=== PATIENT | male | born 1960 | race Caucasian/White ===

== ENCOUNTER 2018-11-26 00:19 | Emergency (ER) | payer BC ==
--- NOTE | 2018-11-26 00:42 | ED ---
Syncope/Near Syncope - HPI Summary HPI Summary: 58 yo male [place] [facility] [facility] [place] s/p dizziness. Pt tells me that he was out drinking with old college friends starting at around 1700 this evening. He was at a local bar with his friends and around 2330 he stood up from the table and felt dizzy at which point he fell to the floor. Friends around him said he was "out" for about a minute. He came to and says that he felt ok, but was still dizzy. Currently he admits that he drank around 12-13 beers between 1700 and 2330. No drug use. He still has some dizziness, but denies SOB, chest pain, abdominal pain, n/v/d, dysuria. He denies PMHx and takes no medications. - History Of Current Complaint Chief Complaint: EDSyncope Time Seen by Provider: 11/26/18 00:42 Hx Obtained From: Patient Onset/Duration: Sudden Onset - Allergies/Home Medications Allergies/Adverse Reactions: Allergies Allergy/AdvReac Type Severity Reaction Status Date / Time No Known Allergies Allergy Verified 11/26/18 00:20 Home Medications: Home Medications NK [No Home Medications Reported] 11/26/18 [History Confirmed 11/26/18] PMH/Surg Hx/FS Hx/Imm Hx Endocrine/Hematology History: Denies: Hx Diabetes Cardiovascular History: Denies: Hx Atrial Fibrillation, Hx Congestive Heart Failure, Hx Hypotension, Hx Hypertension Respiratory History: Denies: Hx Asthma, Hx Chronic Obstructive Pulmonary Disease (COPD) GI History: Denies: Hx Gastroesophageal Reflux Disease Neurological History: Denies: Hx CVA, Hx Headaches, Hx Migraine, Hx Transient Ischemic Attacks (TIA ) Psychiatric History: Denies: Hx Anxiety, Hx Depression - Surgical History Surgical History: None - Immunization History Immunizations Up to Date: Yes Infectious Disease History: No Infectious Disease History: Denies: Traveled Outside the [place] in Last 30 Days - Family History Known Family History: Positive: Non-Contributory - Social History Occupation: Employed Full-time Lives: With Family Alcohol Use: Weekly Substance Use Type: Reports: None Smoking Status (MU): Former Smoker Review of Systems Constitutional: Negative Cardiovascular: Negative Respiratory: Negative Gastrointestinal: Negative Genitourinary: Negative Musculoskeletal: Negative Skin: Negative Positive: Syncope Psychological: Normal All Other Systems Reviewed And Are Negative: Yes Physical Exam - Summary Physical Exam Summary: GENERAL: NAD. WDWN. No pain distress. SKIN: No rashes, sores, or open wounds. HEENT: Head: AT/NC Eyes: PERRLA. EOM intact. Conjunctiva clear without inflammation or discharge. Ears: Hearing grossly normal. TMs intact, no bulging, erythema, or edema. Nose: Nasal mucosa pink and moist. NTTP maxillary and frontal sinus. Throat: Posterior oropharynx without exudates, erythema, or tonsillar enlargement. Uvula midline. NECK: Supple. Nontender. No lymphadenopathy. CHEST: CTAB. No r/r/w. No accessory muscle use. Breathing comfortably and in no distress. CV: RRR. Without m/r/g. Pulses intact. Brisk cap refill. ABDOMEN: Soft. NTTP. No distention or guarding. No CVA tenderness. Bowel sounds present MSK: FROM and 5/5 strength throughout. No edema. NEURO: Alert. 3 word recall, remote, recent memory, ability to follow 2-step directions, and attention intact. CN: II: Peripheral alcaraz intact. Vision normal. III, IV, : EOMI. No nystagmus. PERRLA. V: Sensations intact and symmetric. Opens mouth and clenches teeth. VII: No facial asymmetry. Forehead wrinkles. Grins, shuts eyes, frowns, puffs cheeks. VIII: Hearing intact to finger rub. IX, X: Swallows and coughs. Uvula midline. XI: Shrugs shoulders. Turns head against resistance. XII: No tongue deviation [id number] are intact. Normal speech. No facial drooping. PSYCH: Age appropriate behavior. Triage Information Reviewed: Yes Vital Signs On Initial Exam: Initial Vitals Temp Pulse Resp BP Pulse Ox 97.4 F 79 18 120/72 95 11/26/18 00:19 11/26/18 00:19 11/26/18 00:19 11/26/18 00:19 11/26/18 00:19 Vital Signs Reviewed: Yes Diagnostics - Vital Signs Vital Signs Temp Pulse Resp BP Pulse Ox 11/26/18 00:23 82 16 120/74 96 11/26/18 00:19 97.4 F 79 18 120/72 95 - Laboratory Lab Results: Laboratory Tests 11/26/18 11/26/18 11/26/18 01:19 01:19 01:19 WBC 7.6 RBC 4.76 Hgb 14.9 Hct 44 MCV 92 MCH 31 MCHC 34 RDW 13 Plt Count 207 MPV 8.2 Neut % (Auto) 69.2 Lymph % (Auto) 19.2 [place] % (Auto) 8.3 Eos % (Auto) 3.1 Baso % (Auto) 0.2 Absolute Neuts (auto) 5.2 Absolute Lymphs (auto) 1.5 Absolute Monos (auto) 0.6 Absolute Eos (auto) 0.2 Absolute Basos (auto) 0.0 Absolute Nucleated RBC 0.0 Nucleated RBC % 0.0 Sodium 138 Potassium 3.7 Chloride 104 Carbon Dioxide 26 Anion Gap 8 BUN 16 Creatinine 1.07 Est GFR ( Amer) 85.9 Est GFR (Non-Af Amer) 71.0 BUN/Creatinine Ratio 15.0 Glucose 104 H Lactic Acid 1.8 Calcium 8.8 Total Bilirubin 0.40 AST 20 ALT 25 Alkaline Phosphatase 53 Troponin I 0.00 Total Protein 6.1 L Albumin 4.0 Globulin 2.1 Albumin/Globulin Ratio 1.9 Serum Alcohol < 10 Result Diagrams: 11/26/18 01:19 11/26/18 01:19 Lab Statement: Any lab studies that have been ordered have been reviewed, and results considered in the medical decision making process. - Radiology CXR Radiology Interpretation Completed By: ED Physician Summary of Radiographic Findings: No acute process - CT Brain CT Interpretation Completed By: Radiologist Summary of CT Findings: IMPRESSION: No acute intracranial findings. - EKG 1 Cardiac Rate: NL ST Segment: Normal Ectopy: None EKG Comparison: Other - NSR 78bpm. No STEMI as read by Dr. Singh Course/Dx Course Of Treatment: Labs WNL. Imaging WNL as above. Serum alcohol negative - discussed with lab and will rerun given pt's admission of multiple alcoholic drinks this evening. While in the ED he has had no change in his dizziness and continues to deny any other symptoms. Sign out to Dr. Singh pending urine drug screen, rerun alcohol level, and dispo - Diagnoses Provider Diagnoses: Dizziness Discharge ED - Sign-Out/Discharge Documenting (check all that apply): Sign-Out Patient Signing out patient TO: Lucila Singh - Discharge Plan Referrals: No Primary Care Phys,NOPCP [Primary Care Provider] -
[2018-11-26] MEDS ORDERED: NS 0.9% 1000 ML** 1,000 ML IV ONE (01:29)
[2018-11-26 01:34] LABS: ABS Eosinophils 0.2 10^3/ul (0-0.6); ABS Lymphocytes 1.5 10^3/ul (1.0-4.8); ABS Monocytes 0.6 10^3/ul (0-0.8); ABS Neutrophils 5.2 10^3/ul (1.5-7.7); Eosinophil % 3.1 %; Hematocrit 44 % (42-52); Hemoglobin 14.9 g/dL (14.0-18.0); Lymphocyte % 19.2 %; Mean Corpuscular HGB Conc 34 g/dL (31-36); Mean Corpuscular Hemoglobin 31 pg (27-31); Mean Corpuscular Volume 92 fL (80-94); Mean Platelet Volume 8.2 fL (7.4-10.4); Platelet Count 207 10^3/uL (150-450); Red Blood Count 4.76 10^6 /uL (4.18-5.48); Red Cell Distribution Width 13 % (10-15); White Blood Count 7.6 10^3/uL (3.5-10.8)
[2018-11-26 01:48] LABS: ALT 25 U/L (7-52); AST 20 U/L (13-39); Albumin/Globulin Ratio 1.9 (1-3); Alkaline Phosphatase 53 U/L (34-104); Anion Gap 8 mmol/L (2-11); Blood Urea Nitrogen 16 mg/dL (6-24); CO2 Carbon Dioxide 26 mmol/L (22-32); Calcium 8.8 mg/dL (8.6-10.3); Chloride 104 mmol/L (101-111); EGFR African American 85.9 (>60); Globulin 2.1 g/dL (2-4); Glucose 104 mg/dL (70-100); Potassium 3.7 mmol/L (3.5-5.0); Sodium 138 mmol/L (135-145); Total Protein 6.1 g/dL (6.4-8.9)
--- NOTE | 2018-11-26 02:35 | ED ---
Progress - Progress Note Progress Note: This pt is a sign out to Dr. Singh from [facility] at shift change 0230 pending a re-run of his serum alcohol labs and further observations. Course/Dx - Course Course Of Treatment: This pt is a sign out to Dr. Singh from [facility] at shift change 0230 11/26/18 pending a re-run of his serum alcohol labs and further observations. - Diagnoses Provider Diagnoses: Dizziness Discharge ED - Sign-Out/Discharge Documenting (check all that apply): Receiving Sign-Out Receiving patient FROM: [facility] Patient Received Moderate/Deep Sedation with Procedure: No - Discharge Plan Referrals: No Primary Care Phys,NOPCP [Primary Care Provider] - - Attestation Statements Document Initiated by Oralia: Yes Documenting Scribe: Manuel Gonzalez Provider For Whom Scribe is Documenting (Include Credential): Lucila Singh MD Scribe Attestation: Manuel Jack, scribed for Lucila Singh MD on 11/26/18 at 0518. Scribe Documentation Reviewed: Yes Provider Attestation: The documentation as recorded by the Manuel campos accurately reflects the service I personally performed and the decisions made by , Lucila Singh MD Status of Scribe Document: Viewed
[2018-11-26 05:05] LABS: Urine Benzodiazepine Screen None Detected (None Detect); Urine Opiates Screen None Detected (None Detect)
[2018-11-26 06:52] VITALS: BP 123/74
[2018-11-28 09:11] LABS: Alcohol < 10 mg/dL (<10)
== END 2018-11-26 06:53 | disposition home or self-care (01) ==
LOC: ED 00:19
DX: R42 Dizziness and giddiness (principal); F10.129 Alcohol abuse with intoxication, unspecified; R55 Syncope and collapse; Z87.891 Personal history of nicotine dependence
CPT/HCPCS: 36415; 70450; 71045; 80053; 80307; 80320; 83605; 84484; 85025; 93005; 96360; 99284; G0480